=== PATIENT | female | born 1990 | race Caucasian/White ===

== ENCOUNTER 2016-12-19 10:28 | Emergency (ER) | payer SELFPAY ==
[2016-12-19 12:01] LABS: BASOPHILS 0.5 % (0-2); HEMATOCRIT 35.1 % (36.0-48.0); HEMOGLOBIN 12.4 g/dL (12-16); IMMATURE GRANULOCYTES 0.5 % (0-5); LYMPHOCYTES 40.7 % (15-50); MCHC 35.3 g/dL (31.0-37.0); MCV 84.8 fL (80.0-100.0); MEAN PLATELET VOLUME 10.5 fL (7.4-10.4); MONOCYTES 7.9 % (2-11); NEUTROPHILS 47.4 % (40-80); PLATELET COUNT 243 10x3/uL (130-400); RBC 4.14 10x6/uL (4.00-5.40); RDW 12.2 % (11.5-14.5)
[2016-12-19 12:34] LABS: ALBUMIN 3.9 g/dL (3.4-5.0); ALKALINE PHOSPHATASE 84 U/L (46-116); ALT (SGPT) 48 U/L (10-68); BILIRUBIN - TOTAL 0.52 mg/dL (0.2-1.3); CALC OSMOLALITY 281 mosm/kg (275-300); CALCIUM 9.2 mg/dL (8.5-10.1); CARBON DIOXIDE 25.6 mmol/L (21.0-32.0); CHLORIDE - SERUM 105 mmol/L (98-107); CREATININE - SERUM 0.7 mg/dL (0.6-1.3); GLUCOSE 100 mg/dL (74-106); POTASSIUM - SERUM 4.3 mmol/L (3.5-5.1); PROTEIN - SERUM 7.5 g/dL (6.4-8.2); SODIUM 141 mmol/L (136-145); UREA NITROGEN 16 mg/dL (7-18); eGFR NON AFRICAN AMERICAN > 90 mL/min (90-120)
[2016-12-19 12:35] LABS: HCG SERUM NEGATIVE (NEGATIVE)
[2016-12-19 13:41] LABS: APPEARANCE CLEAR (CLEAR); BILIRUBIN NEGATIVE (NEGATIVE); COLOR YELLOW (YELLOW); GLUCOSE NEGATIVE (NEGATIVE); KETONE NEGATIVE (NEGATIVE); LEUKOCYTE ESTERASE TRACE (NEGATIVE); NITRITE NEGATIVE (NEGATIVE); PROTEIN NEGATIVE (NEGATIVE); UROBILINOGEN NORMAL (NORMAL)
[2016-12-19 13:47] LABS: BACTERIA NONE SEEN /hpf (NONE SEEN); EPITHELIAL CELLS OCC /hpf (0-5); RED CELLS - URINE NONE SEEN /hpf (0-5); WHITE CELLS - URINE OCC /hpf (0-5)
== END 2016-12-19 16:16 | disposition home or self-care (01) ==
LOC: D.ER 10:28
PROVIDERS: Emergency Medicine
DX: R51 Headache (principal); S82.002A Unspecified fracture of left patella, initial encounter for closed fracture; W19.XXXA Unspecified fall, initial encounter

== ENCOUNTER → 2017-01-16 11:14 | Outpatient (CLI) | payer OTHER | END | disposition home or self-care (01) | LOC: D.MRI 11:14 | DX: S83.005A Unspecified dislocation of left patella, initial encounter (principal); X58.XXXA Exposure to other specified factors, initial encounter; Y93.89 Activity, other specified; Y92.89 Other specified places as the place of occurrence of the external cause ==

== ENCOUNTER 2017-04-02 05:55 | Day surgery (SDC) | payer OTHER ==
[2017-03-30 08:39] LABS: HEMATOCRIT 35.4 % (36.0-48.0); HEMOGLOBIN 12.5 g/dL (12-16); MCH 30.1 pg (26.0-34.0); MCHC 35.3 g/dL (31.0-37.0); MCV 85.3 fL (80.0-100.0); MEAN PLATELET VOLUME 10.8 fL (7.4-10.4); RBC 4.15 10x6/uL (4.00-5.40); RDW 12.4 % (11.5-14.5); WBC 8.7 10x3/uL (4.8-10.8)
[~2017-04-02] VITALS: Ht 162.6 cm; Wt 82.1 kg
--- NOTE | ~2017-04-02 | OP ---
PATIENT NAME: GEORGIE ROBERTS MEDICAL RECORD: [id number] :89 LOCATION:[facility] ADMISSION DATE: SURGEON: MURPHY VALVERDE MD DATE OF OPERATION: 04/02/2017 PREOPERATIVE DIAGNOSES: 1. Patellofemoral syndrome with patellar dislocation. 2. Loose body. 3. Lateral meniscus tear. POSTOPERATIVE DIAGNOSES: 1. Patellofemoral syndrome with patellar dislocation. 2. Loose body. 3. Lateral meniscus tear. PROCEDURES: 1. Arthroscopic partial lateral meniscus tear. 2. Arthroscopic lateral release on the left knee. 3. Arthroscopic removal of loose body. SURGEON: Murphy Valverde MD ANESTHESIA: General. INTRAOPERATIVE COMPLICATIONS: None. SUMMARY OF PATHOLOGIC FINDINGS: The patient had sustained a large injury on the lateral femoral condyle where a large portion of the osteoarticular aspect had been knocked off. The area had filled with fibrocartilage and portions of the loose body remained partially adherent to the lateral aspect of the lateral femoral condyle. This was photographed intraoperatively. A small radial oblique tear of the lateral meniscus was noted likely associated with this defect and there was no substantial defect of the patella, lateral retinacular was very tight. OPERATIVE SUMMARY IN DETAIL: After obtaining the appropriate preoperative orthopedic surgery consent as well as anesthetic consultation, evaluation and clearance, the patient was brought to the operating room and placed on the operating table in supine position. After general laryngeal mask was administered, tourniquet was placed about the proximal aspect of left lower extremity. Left lower extremity was then prepped and draped in routine sterile fashion. The leg was elevated and exsanguinated, tourniquet inflated to 350 mmHg. Routine inferolateral portal was established followed by superomedial portal and inferomedial portal. Diagnostic arthroscopy did reveal the above findings. The patient's leg was placed in a [id number] position, small lateral meniscus tear was removed using an arthroscopic resector. At this point, the arthroscopy was switched for direct visualization from the medial portal to work through the lateral portal. The loose body was serial and sequentially removed using an arthroscopic resector. Portions of chondromalacia were smoothed down as well. This was photographed intraoperatively. Having completed this, the [place] tissue ablation system was utilized to release the lateral retinaculum from just distal to the vastus lateralis to the inferolateral portal. Having completed this, arthroscopy portals were closed in routine interrupted fashion. The knee was insufflated with 30 cc of 0.25% Marcaine with epinephrine and 40 mg of Depo-Medrol. Sterile dressings were OPERATIVE REPORT [id number] GEORGIE ROBERTS applied. Tourniquet was deflated. The patient was awakened and taken to recovery room in stable condition. All final needle, instrument and sponge counts were correct. TRANSINT:[id number] Voice Confirmation ID: [id number] DOCUMENT ID: [id number] ABRAM GOMEZ, MURPHY LOCO CC: [id number] DICTATION DATE: 04/02/17919 HUMAN [employer]OURCES LEADER: 04/02/17 1041 [facility] [address] [place] [place] [id number]
[2017-04-02 06:21] VITALS: BP 115/74; Ht 162.6 cm; Wt 82.1 kg
[2017-04-02] MEDS ORDERED: HYDROCODONE-APA1 TAB PO (09:16)
== END 2017-04-02 13:48 | disposition home or self-care (01) ==
LOC: D.OPS 05:55 → D.PAN 09:30 → D.OPS 09:30
PROVIDERS: Anesthesiology
DX: S83.282A Other tear of lateral meniscus, current injury, left knee, initial encounter (principal); M23.42 Loose body in knee, left knee; J45.909 Unspecified asthma, uncomplicated; K21.9 Gastro-esophageal reflux disease without esophagitis; Z01.812 Encounter for preprocedural laboratory examination